=== PATIENT | female | born 1975 | race Caucasian/White ===

== ENCOUNTER 2017-02-16 15:05 | Emergency (ER) | payer BC, OTHER ==
[2017-02-16] MEDS ORDERED: Sodium Chloride 0.9% 1,000 ML IV STA (15:35)
[2017-02-16 15:52] LABS: BASO % 0.4 % (0.0-2.0); EOS % 0.5 % (0.0-4.0); LYMPH # 0.9 K/uL (1.0-4.3); LYMPH % 22.2 % (20.0-40.0); MEAN CELL VOLUME 92.7 fl (81.0-99.0); MEAN CORPUSCULAR HEMOGLOBIN 30.6 pg (27.0-31.0); MONO # 0.6 K/uL (0.0-0.8); MONO % 14.4 % (0.0-10.0); NEUT # 2.5 K/uL (1.8-7.0); NEUT % 62.5 % (50.0-75.0); RED CELL DISTRIBUTION WIDTH 13.3 % (11.5-14.5)
[2017-02-16 15:58] LABS: ALB/GLOB RATIO 1.2 (1.0-2.1); ALKALINE PHOSPHATASE 65 U/L (38-126); ALT/SGPT 28 U/L (9-52); AST/SGOT 36 U/L (14-36); BILIRUBIN,TOTAL 0.3 mg/dl (0.2-1.3); BLOOD UREA NITROGEN 9 mg/dl (7-17); CALCIUM 8.8 mg/dL (8.4-10.2); CARBON DIOXIDE 22 mmol/L (22-30); CHLORIDE 105 mmol/L (98-107); GFR AFRICAN-AMERICAN > 60; GLUCOSE,RANDOM 97 mg/dL (65-105); POTASSIUM 3.8 MMOL/L (3.6-5.0); SODIUM 140 mmol/l (132-148); TOTAL PROTEIN 6.9 G/DL (6.3-8.2)
--- NOTE | 2017-02-16 16:02 | ED PDOC ---
HPI: General Adult Time Seen by Provider: 02/16/17 15:20 Chief Complaint (Nursing): Chest Pain Chief Complaint (Provider): Flu-like symptoms History Per: Patient History/Exam Limitations: no limitations Onset/Duration Of Symptoms: Days (x5 days) Additional Complaint(s): 41 y/o female who presents to the emergency department with a complaint of a fever, cough, chest pain (due to cough), body aches, watery eyes, generalized weakness and shortness of breath since 02/12/2017. Reports taking Tylenol, Dayquil, and Nyquil for the relief of symptoms, last dose at 10 am. Denies nausea, vomiting, diarrhea, or sputum. PMD: None Past Medical History Reviewed: Historical Data, Nursing Documentation, Vital Signs Vital Signs: Last Vital Signs Temp 100.6 F H 02/16/17 15:10 Pulse 99 H 02/16/17 15:10 Resp 20 02/16/17 15:10 BP 121/80 02/16/17 15:10 Pulse Ox 95 02/16/17 16:05 - Medical History PMH: Asthma (has not needed inhaler in years) - Surgical History Surgical History: Tonsillectomy, (x 1) Other surgeries: Foot, left. Uterine polyps - Family History Family History: States: Unknown Family Hx - Social History Current smoker - smoking cessation education provided: No Ex-Smoker (has not smoked in the last 12 months): Yes Alcohol: Social Drugs: Denies - Home Medications Home Medications: Ambulatory Orders Medication Instructions Recorded Benzonatate [Tessalon Perles] 100 mg PO BID PRN 5 Days 02/16/17 Ibuprofen [Motrin] 600 mg PO TID 7 Days 02/16/17 Oseltamivir Phosphate [Tamiflu] 75 mg PO BID 5 Days 02/16/17 - Allergies Allergies/Adverse Reactions: Allergies Allergy/AdvReac Type Severity Reaction Status Date / Time prochlorperazine Allergy FATIGUE Verified 02/16/17 15:09 [From Compazine] prochlorperazine edisylate Allergy FATIGUE Verified 02/16/17 15:09 [From Compazine] prochlorperazine maleate Allergy FATIGUE Verified 02/16/17 15:09 [From Compazine] promethazine HCl Allergy FATIGUE Verified 02/16/17 15:09 [From Phenergan] Review of Systems ROS Statement: Except As Marked, All Systems Reviewed And Found Negative Constitutional: Positive for: Fever, Weakness (Generalized), Other (Body aches) ENT: Positive for: Other (Water eyes) Cardiovascular: Positive for: Chest Pain (due to coughing) Respiratory: Positive for: Cough, Shortness of Breath. Negative for: Sputum Gastrointestinal: Negative for: Nausea, Vomiting, Diarrhea Physical Exam - Reviewed Nursing Documentation Reviewed: Yes Vital Signs Reviewed: Yes - Physical Exam Appears: Positive for: Non-toxic, No Acute Distress Head Exam: Positive for: ATRAUMATIC, NORMOCEPHALIC Skin: Positive for: Normal Color, Warm, Dry Eye Exam: Positive for: Normal appearance. Negative for: Conjunctival injection ENT: Positive for: Nasal Congestion. Negative for: Pharyngeal Erythema, Tonsillar Exudate Neck: Positive for: Normal, Supple Cardiovascular/Chest: Positive for: Regular Rate, Rhythm. Negative for: Murmur Respiratory: Positive for: Normal Breath Sounds. Negative for: Accessory Muscle Use, Respiratory Distress Gastrointestinal/Abdominal: Positive for: Normal Exam, Soft. Negative for: Tenderness Back: Positive for: Normal Inspection. Negative for: L CVA Tenderness, R CVA Tenderness Extremity: Positive for: Normal ROM. Negative for: Tenderness, Pedal Edema Neurologic/Psych: Positive for: Alert, Oriented - Laboratory Results Result Diagrams: 02/16/17 15:40 02/16/17 15:40 Interpretation Of Abn Labs: flu pos - ECG ECG: Positive for: Interpreted By Me, Viewed By Me ECG Rhythm: Positive for: Normal QRS, Normal ST Segment, Sinus Rhythm O2 Sat by Pulse Oximetry: 95 (RA) Pulse Ox Interpretation: Normal - Radiology X-Ray: Read By Radiologist X-Ray Interpretation: No Acute Disease - Progress ED Course And Treament: 1806: Stable. AAOx3. Pain controlled. Will give tamiflu does in ED and rx. Medical Decision Making Medical Decision Making: Time: 15:20 Initial impression: Flu-like Symptoms Initial plan: --Electrocardiogram Stat --COMP Metabolic Panel --ED Urine (POC) --Urine Dip --EKG-ED (EDNURTX) Stat --CBC w/ differential --Chest Portable (RAD) --Sodium Chloride 1,000 ml IV 1,000 mls/hr --Benzonatate 100 mg PO --Toradol 30 mg IV --Influenza A B Stat --Revaluation Scribe Attestation: Documented by Daniela Sung, acting as a scribe for Alex Green MD. Provider Scribe Attestation: All medical record entries made by the Scribe were at my direction and personally dictated by me. I have reviewed the chart and agree that the record accurately reflects my personal performance of the history, physical exam, medical decision making, and the department course for this patient. I have also personally directed, reviewed, and agree with the discharge instructions and disposition. Disposition - Clinical Impression Clinical Impression: Influenza - Patient ED Disposition Is Patient to be Admitted: No Counseled Patient/Family Regarding: Studies Performed, Diagnosis, Need For Followup, Rx Given - Disposition Referrals: [facility] [Outside] - 02/17/17 Disposition: Routine/Home Disposition Time: 18:09 Condition: STABLE Additional Instructions: Return if not better in 3 days. Prescriptions: Ibuprofen [Motrin] 600 mg PO TID 7 Days Oseltamivir Phosphate [Tamiflu] 75 mg PO BID 5 Days Benzonatate [Tessalon Perles] 100 mg PO BID PRN 5 Days PRN Reason: Cough Instructions: Influenza (ED) Forms: [facility] ED School/Work Excuse
--- NOTE | 2017-02-16 17:47 | RAD ---
HISTORY: dyspnea COMPARISON: No prior. FINDINGS: LUNGS: No active pulmonary disease. PLEURA: No significant pleural effusion identified, no pneumothorax apparent. CARDIOVASCULAR: Normal. OSSEOUS STRUCTURES: No significant abnormalities. VISUALIZED UPPER ABDOMEN: Normal. OTHER FINDINGS: None. IMPRESSION: No active disease.
[2017-02-16 18:42] VITALS: BP 127/79; PULSE 87; RESP 19; TEMP 98.4; O2SAT 98
--- NOTE | 2017-02-17 16:32 | CARD ---
APPROVED REPORT EKG Measurement Heart [id number] <Conclusion> Normal sinus rhythm Possible Left atrial enlargement Borderline ECG
== END 2017-02-16 18:43 | disposition home or self-care (01) ==
LOC: H.ER 15:05
DX: J11.1 Influenza due to unidentified influenza virus with other respiratory manifestations (principal); R07.9 Chest pain, unspecified; R53.1 Weakness; Z87.891 Personal history of nicotine dependence
CPT/HCPCS: 71010; 80053; 81025; 85025; 87804; 93005; 96360; 99283; J1885; J7040